=== PATIENT | female | born 1945 | race Two or more races ===

== ENCOUNTER 2016-08-19 11:16 | Emergency (ER) | payer OTHER, MEDICARE ==
[~2016-08-19] VITALS: Ht 157.5 cm; Wt 63.1 kg
[~2016-08-19 11:16] MED LIST: AMBIEN5 MG PO; ASPIRIN E.C.81 M1 PO; ASPIRIN81 M1 PO; ATROVENT H200 INHALA IH; Ambien PO; Atrovent HFA Inhaler IH; BENADRYL50 MG PO; Benadryl PO; CARDIZEM CD,CA120 MG PO; CARDIZEM60 MG PO; Claritin,Alavart PO; Dulcolax PO; LIPITOR10 MG PO; MOBIC7.5 MG PO; NEURONTIN400 M1 PO; Omega III EPA + DHA PO; Oyst-Cal D, Oscal W/ PO; PEPCID40 MG PO; PREMARIN0.625 MG PO; PREPARATION H60 GM PR; RESTASIS 01 DROP/0.4 BOTH EYES; RESTASIS1 EACH OP; SENOKOT S,PE1 TABLET PO; THERAGRAN1 TABLET PO; TYLENOL WITH C1 EACH PO; TYLENOL325 M1 PO; Tylenol Regular Stre PO; ULTRAM50 MG PO; ZOFRAN4 MG PO; Zocor PO
[2016-08-19 12:06] LABS: ADD MIUA? NO; BILIRUBIN NEGATIVE; BLOOD NEGATIVE; COLOR YELLOW ((YELLOW)); GLUCOSE (STRIP) NEGATIVE; KETONES NEGATIVE; LEUKOCYTES NEGATIVE; NITRITE NEGATIVE; PH, URINE 8.5 (5-8); PROTEIN (STRIP) NEGATIVE; SPECIFIC GRAVITY 1.006 (1.000-1.030); UCUL ADDED? NO; UROBILINOGEN 0.2 MG/DL (0.2-1.0)
[2016-08-19 12:16] LABS: HEMATOCRIT 37.5 % (36.0-46.0); MCH 27.2 PG (29.0-34.0); MCHC 33.6 G/DL (30.0-36.0); MEAN PLAT.VOLUME 9.9 uM^3 (9.5-12.4); PLATELET COUNT 307 K/uL (156-360); RBC DIS.WIDTH-SD 40.6 % (39-53); RED BLOOD COUNT 4.63 M/uL (3.80-5.20); WHITE BLOOD COUNT 6.6 K/uL (4.1-10.2)
[2016-08-19 12:22] LABS: PROTHROMBIN TIME 10.5 (9.2-11.2)
[2016-08-19 12:23] LABS: CHLORIDE 102 mEq/L (99-109); POTASSIUM 3.7 mEq/L (3.7-5.4); SODIUM 140 mEq/L (136-147)
[2016-08-19 12:25] LABS: GLUCOSE 107 mg/dL (70-99)
[2016-08-19 12:26] LABS: ANION GAP 15 MEQ/L (2-14)
[2016-08-19 12:29] LABS: GFR ESTIMATE (CALCULATED) > 59 mL/min/
[2016-08-19 12:30] LABS: UREA NITROGEN (BUN) 10 mg/dL (9-23)
[2016-08-19 12:35] LABS: TROP-I INTERPRETATION NEGATIVE; TROPONIN-I < 0.01 ng/mL (0.0-0.30)
[2016-08-19 18:24] VITALS: BP 160/74
== END 2016-08-19 18:26 | disposition home or self-care (01) ==
LOC: EME → EDBD 11:16 → EME 11:16
PROVIDERS: Emergency Medicine
DX: F41.9 Anxiety disorder, unspecified (principal); R07.9 Chest pain, unspecified; R41.82 Altered mental status, unspecified; J45.909 Unspecified asthma, uncomplicated; G89.29 Other chronic pain; M79.7 Fibromyalgia; E78.5 Hyperlipidemia, unspecified; I10 Essential (primary) hypertension; K21.9 Gastro-esophageal reflux disease without esophagitis; Z79.82 Long term (current) use of aspirin
CPT/HCPCS: 71010; 80048; 81003; 84484; 85027; 85610; 93005; 94640; 99281; 99285

== ENCOUNTER 2016-08-22 20:59 | Inpatient (IN) | payer OTHER, MEDICARE ==
[~2016-08-22] VITALS: Ht 157.5 cm; Wt 59.8 kg
[2016-08-22 22:09] LABS: EOSINOPHIL (%) 0.8 % (0-5); EOSINOPHIL COUNT 0.1 K/uL (0-0.3); HEMATOCRIT 40.5 % (36.0-46.0); IMMATURE GRANULOCYTE (%) 0.2 % (0.0-0.7); IMMATURE GRANULOCYTE COUNT 0.2 K/uL; LYMPHOCYTE COUNT 1.2 K/uL (1.0-2.8); MCH 27.6 PG (29.0-34.0); MCHC 34.1 G/DL (30.0-36.0); MEAN PLAT.VOLUME 9.9 uM^3 (9.5-12.4); MONOCYTE (%) 5.2 % (3-12); MONOCYTE COUNT 0.5 K/uL (0-0.8); NEUTROPHIL (%) 80.5 % (45-76); NEUTROPHIL COUNT 7.2 K/uL (1.8-6.4); PLATELET COUNT 331 K/uL (156-360); RBC DIS.WIDTH-SD 40.7 % (39-53)
[2016-08-22 22:19] LABS: CHLORIDE 101 mEq/L (99-109); POTASSIUM 3.8 mEq/L (3.7-5.4); SODIUM 136 mEq/L (136-147)
[2016-08-22 22:21] LABS: GLUCOSE 158 mg/dL (70-99)
[2016-08-22 22:22] LABS: ANION GAP 9 MEQ/L (2-14)
[2016-08-22 22:24] LABS: SERUM ETHYL ALCOHOL < 10 mg/dL
[2016-08-22 22:25] LABS: GFR ESTIMATE (CALCULATED) > 59 mL/min/
[2016-08-22 22:27] LABS: UREA NITROGEN (BUN) 9 mg/dL (9-23)
[2016-08-22 22:28] LABS: CREATINE KINASE 58 IU/L (1-294); SALICYLATE < 5.0 MG/DL (15-30); TROP-I INTERPRETATION NEGATIVE; TROPONIN-I < 0.01 ng/mL (0.0-0.30)
[2016-08-22 23:07] LABS: ADD MIUA? NO; BILIRUBIN NEGATIVE; BLOOD NEGATIVE; COLOR YELLOW ((YELLOW)); GLUCOSE (STRIP) NEGATIVE; KETONES NEGATIVE; LEUKOCYTES NEGATIVE; NITRITE NEGATIVE; PROTEIN (STRIP) NEGATIVE; SPECIFIC GRAVITY 1.007 (1.000-1.030); UCUL ADDED? NO; UROBILINOGEN 0.2 MG/DL (0.2-1.0)
[2016-08-23 00:25] LABS: AMPHETAMINE NEGATIVE (500 ng/mL); BARBITURATES NEGATIVE (200 ng/mL); BENZODIAZEPINES NEGATIVE (150 ng/mL); COCAINE NEGATIVE (150 ng/mL); INTERNAL CONTROLS VALID? YES; METHADONE NEGATIVE (200 ng/mL); METHAMPHETAMINE NEGATIVE (500 ng/mL); OPIATES (MORPHINE) NEGATIVE (100 ng/mL); OXYCODONE NEGATIVE (100 ng/mL); PHENCYCLIDINE NEGATIVE (25 ng/mL); PROPOXYPHENE NEGATIVE (300 ng/mL); THC CANNABINOIDS NEGATIVE (50 ng/mL); TRICYCLIC ANTIDEPRESSANTS NEGATIVE (300 ng/mL)
[2016-08-23 15:33] VITALS: BP 145/62
[2016-08-23] MEDS ORDERED: GABAPENTIN100 MG PO (17:01)
[2016-08-23] MEDS ORDERED: PANTOPRAZOLE SO40 MG PO ×2 (17:02→17:52)
[2016-08-23] MEDS ORDERED: PROAIR RESPICL90 MCG IH (17:03)
[2016-08-23] MEDS ORDERED: TRAMADOL HCL50 MG PO (17:39)
[2016-08-23] MEDS ORDERED: CARDIZEM120 MG PO (17:40)
[2016-08-23] MEDS ORDERED: CITALOPRAM HBR20 MG PO (17:41)
[2016-08-23] MEDS ORDERED: GABAPENTIN600 MG PO (17:41)
[2016-08-23] MEDS ORDERED: MELOXICAM7.5 MG PO (17:43)
[2016-08-23] MEDS ORDERED: ESTROPIPATE3 MG PO (17:43)
[2016-08-23] MEDS ORDERED: ZOLPIDEM TARTRAT5 MG PO (17:52)
[2016-08-23] MEDS ORDERED: ASPIR-LOW81 MG PO (17:53)
[2016-08-24 07:29] VITALS: BP 131/59
[2016-08-24 08:18] LABS: HEMATOCRIT 37.7 % (36.0-46.0); MCH 27.8 PG (29.0-34.0); MCHC 33.4 G/DL (30.0-36.0); MCV 83.2 FL (83-99); MEAN PLAT.VOLUME 10.3 uM^3 (9.5-12.4); PLATELET COUNT 286 K/uL (156-360); RBC DIS.WIDTH-CV 14.2 % (11.8-14.6); RBC DIS.WIDTH-SD 42.9 % (39-53); RED BLOOD COUNT 4.53 M/uL (3.80-5.20); WHITE BLOOD COUNT 7.3 K/uL (4.1-10.2)
[2016-08-24 08:40] LABS: ALKALINE PHOSPHATASE 68 IU/L (3-129); ANION GAP 7 MEQ/L (2-14); CHLORIDE 99 MEQ/L (99-109); GFR ESTIMATE (CALCULATED) > 59 mL/min/; POTASSIUM 4.2 MEQ/L (3.7-5.4); SAMPLE HEMOLYSIS CHECK 0; SAMPLE ICTERIC CHECK 0; SAMPLE LIPEMIA CHECK 0; SODIUM 135 MEQ/L (136-147); TOTAL BILIRUBIN 0.7 MG/DL (0.0-1.0); UREA NITROGEN (BUN) 10 mg/dL (9-23)
[2016-08-24 08:42] LABS: GLUCOSE 98 mg/dL (70-99)
[2016-08-24 15:53] VITALS: BP 152/80
[2016-08-25 07:37] VITALS: BP 148/65
[2016-08-25 16:01] VITALS: BP 150/82
[2016-08-26 07:48] VITALS: BP 179/79
[2016-08-26 10:56] VITALS: BP 153/66
[2016-08-26 15:34] VITALS: BP 188/75
[2016-08-27 03:37] VITALS: BP 187/78
[2016-08-27 07:59] VITALS: BP 149/73
[2016-08-27 12:03] VITALS: BP 154/74
[2016-08-27 15:52] VITALS: BP 177/75
[2016-08-28 07:43] VITALS: BP 150/62
== END 2016-08-28 14:15 | disposition home or self-care (01) | DRG 880 ==
LOC: EME 20:59 → EDOF 08-23 04:48 → 1WEST 08-23 13:30
PROVIDERS: Emergency Medicine; Internal Medicine
DX: F41.9 Anxiety disorder, unspecified (principal); R41.82 Altered mental status, unspecified; R51 Headache; R07.9 Chest pain, unspecified; I10 Essential (primary) hypertension; E78.00 Pure hypercholesterolemia, unspecified; F32.9 Major depressive disorder, single episode, unspecified; J45.909 Unspecified asthma, uncomplicated; M79.7 Fibromyalgia; K21.9 Gastro-esophageal reflux disease without esophagitis; I73.00 Raynaud's syndrome without gangrene; Z79.82 Long term (current) use of aspirin; Z91.19 Patient's noncompliance with other medical treatment and regimen
CPT/HCPCS: 70450; 71010; 80048; 80053; 81003; 82550; 82945; 84157; 84484; 85025; 85027; 87205; 89051; 90837; 93005; 94640; 94640 76; 94760; 97150 GO; 97165 GO; 99202; 99281; 99285; G0480; J1630; J1644; J2060

== ENCOUNTER → 2018-02-24 | Outpatient (CLI) | payer OTHER, MEDICARE ==
[~2018-02-24] MED LIST changes: +ASPIR-LOW81 MG PO; +CARDIZEM120 MG PO; +CITALOPRAM HBR20 MG PO; +ESTROPIPATE3 MG PO; +GABAPENTIN100 MG PO; +GABAPENTIN600 MG PO; +MELOXICAM7.5 MG PO; +PANTOPRAZOLE SO40 MG PO; +PROAIR RESPICL90 MCG IH; +TRAMADOL HCL50 MG PO; +ZOLPIDEM TARTRAT5 MG PO
== END | disposition home or self-care (01) ==
DX: Z01.818 Encounter for other preprocedural examination (principal); R26.2 Difficulty in walking, not elsewhere classified; M25.561 Pain in right knee; M25.661 Stiffness of right knee, not elsewhere classified; M25.461 Effusion, right knee; Z74.1 Need for assistance with personal care; M62.81 Muscle weakness (generalized); M17.11 Unilateral primary osteoarthritis, right knee
CPT/HCPCS: 97161 GP; 97165 GO; 97530 GP; 97535 GO; G8978 GP; G8979 GP; G8980 GP; G8987 GO; G8988 GO; G8989 GO

== ENCOUNTER 2018-03-08 21:52 | Inpatient (IN) | payer OTHER, MEDICARE ==
[~2018-03-08] VITALS: Ht 157.5 cm; Wt 61.0 kg
[~2018-03-08 21:52] MED LIST changes: +B-COMPLEX-VITA1 EACH PO; +CALCIUM 600 MG1 EACH PO; +ESTRACE0.5 MG PO; +NEURONTIN100 MG PO; +PULMICORT FLE180 MCG IH; +RESTASIS MULTI5.5 ML BOTH EYES; +VITAMIN D31000 UNIT PO
[2018-03-09 09:19] VITALS: BP 162/71
[2018-03-09 13:58] LABS: HEMATOCRIT 35.5 % (36.0-46.0); HEMOGLOBIN 11.9 G/DL (11.9-15.5); MCHC 33.5 G/DL (30.0-36.0); MCV 83.5 FL (83-99); PLATELET COUNT 269 K/uL (156-360); RBC DIS.WIDTH-CV 13.2 % (11.8-14.6); RBC DIS.WIDTH-SD 40.5 % (39-53); RED BLOOD COUNT 4.25 M/uL (3.80-5.20); WHITE BLOOD COUNT 10.9 K/uL (4.1-10.2)
[2018-03-09 20:51] VITALS: BP 183/74
[2018-03-09 23:36] VITALS: BP 187/78
[2018-03-10] VITALS (7 sets, daily range): BP systolic 105–194; BP diastolic 59–79
[2018-03-10 00:55] LABS: TROP-I INTERPRETATION NEGATIVE; TROPONIN-I < 0.01 ng/mL (0.0-0.30)
[2018-03-10 06:16] LABS: HEMOGLOBIN 11.4 G/DL (11.9-15.5); MCV 82.3 FL (83-99)
[2018-03-10 06:32] LABS: TROP-I INTERPRETATION NEGATIVE; TROPONIN-I 0.01 ng/mL (0.0-0.30)
[2018-03-10 06:37] LABS: CHLORIDE 97 MEQ/L (99-109); CREATININE 0.6 MG/DL (0.6-1.3); GFR ESTIMATE (CALCULATED) > 59 mL/min/; GLUCOSE 142 mg/dL (70-99); SODIUM 131 MEQ/L (136-147); UREA NITROGEN (BUN) 10 mg/dL (9-23)
[2018-03-10 13:01] LABS: TROP-I INTERPRETATION NEGATIVE; TROPONIN-I < 0.01 ng/mL (0.0-0.30)
[2018-03-11] VITALS (7 sets, daily range): BP systolic 131–181; BP diastolic 60–78
[2018-03-11 07:32] LABS: BASOPHIL (%) 0.1 % (0-1); EOSINOPHIL (%) 0 % (0-5); HEMATOCRIT 31.9 % (36.0-46.0); HEMOGLOBIN 10.7 G/DL (11.9-15.5); IMMATURE GRANULOCYTE (%) 0.2 % (0.0-0.7); LYMPHOCYTE (%) 8.3 % (15-42); MCHC 33.5 G/DL (30.0-36.0); MCV 83.5 FL (83-99); MONOCYTE (%) 8.6 % (3-12); MONOCYTE COUNT 1.1 K/uL (0-0.8); NEUTROPHIL (%) 82.8 % (45-76); NEUTROPHIL COUNT 10.1 K/uL (1.8-6.4); PLATELET COUNT 270 K/uL (156-360); RBC DIS.WIDTH-CV 13.5 % (11.8-14.6); RED BLOOD COUNT 3.82 M/uL (3.80-5.20); WHITE BLOOD COUNT 12.1 K/uL (4.1-10.2)
[2018-03-11 07:52] LABS: CHLORIDE 93 MEQ/L (99-109); CREATININE 0.6 MG/DL (0.6-1.3); GFR ESTIMATE (CALCULATED) > 59 mL/min/; GLUCOSE 121 mg/dL (70-99); POTASSIUM 4.2 MEQ/L (3.7-5.4); SODIUM 131 MEQ/L (136-147); UREA NITROGEN (BUN) 8 mg/dL (9-23)
[2018-03-12 00:48] VITALS: BP 159/71
[2018-03-12 03:26] VITALS: BP 160/78
[2018-03-12 07:24] VITALS: BP 169/72
[2018-03-12 08:34] LABS: HEMATOCRIT 30.7 % (36.0-46.0); HEMOGLOBIN 10.2 G/DL (11.9-15.5); MCH 27.7 PG (29.0-34.0); MCHC 33.2 G/DL (30.0-36.0); MCV 83.4 FL (83-99); PLATELET COUNT 264 K/uL (156-360); RBC DIS.WIDTH-CV 13.2 % (11.8-14.6); RBC DIS.WIDTH-SD 40.6 % (39-53); RED BLOOD COUNT 3.68 M/uL (3.80-5.20)
[2018-03-12 08:55] LABS: CHLORIDE 97 MEQ/L (99-109); CREATININE 0.7 MG/DL (0.6-1.3); GFR ESTIMATE (CALCULATED) > 59 mL/min/; GLUCOSE 124 mg/dL (70-99); SODIUM 137 MEQ/L (136-147); UREA NITROGEN (BUN) 11 mg/dL (9-23)
[2018-03-12] MEDS ORDERED: OXYCODONE HCL5 MG PO (09:12)
[2018-03-12] MEDS ORDERED: LOVENOX40 MG/0.4 SC (09:12)
[2018-03-12] MEDS ORDERED: SENNA PLUS TAB1 EACH PO (09:12)
== END 2018-03-12 15:05 | DRG 470 ==
LOC: ENRESERV 21:52 → CANRESERV 21:52 → ENRESERV 22:27 → 2SOUTH 03-09 08:40 → 3EAST 03-09 08:40 → 2SOUTH 03-09 11:54 → ENRESERV 03-09 13:44 → 2SOUTH 03-09 14:23 → 3EAST 03-09 16:22 → ENRESERV 03-09 16:22 → 2SOUTH 03-09 17:18 → 3EAST 03-12 15:05
PROVIDERS: Hospitalist; Internal Medicine; Nurse Practitioner Family; Orthopaedic Surgery
PROC: 0SRC0J9 Replacement of Right Knee Joint with Synthetic Substitute, Cemented, Open Approach (ICD-10-PCS; principal; 2018-03-09)
PROC: 3E0T3BZ Introduction of Anesthetic Agent into Peripheral Nerves and Plexi, Percutaneous Approach (ICD-10-PCS; 2018-03-09)
DX: M17.11 Unilateral primary osteoarthritis, right knee (principal); M21.161 Varus deformity, not elsewhere classified, right knee; R07.89 Other chest pain; J44.9 Chronic obstructive pulmonary disease, unspecified; G47.30 Sleep apnea, unspecified; I10 Essential (primary) hypertension; G43.909 Migraine, unspecified, not intractable, without status migrainosus; M79.7 Fibromyalgia; K21.9 Gastro-esophageal reflux disease without esophagitis; G89.29 Other chronic pain; E78.5 Hyperlipidemia, unspecified; F32.9 Major depressive disorder, single episode, unspecified; F41.9 Anxiety disorder, unspecified; G62.9 Polyneuropathy, unspecified; Z99.81 Dependence on supplemental oxygen; Z79.82 Long term (current) use of aspirin; Z91.040 Latex allergy status
CPT/HCPCS: 71275; 73560; 80048; 84484; 85014; 85018; 85025; 85027; 85379; 93005; 93970; 94640; 94799; 97530 GO; C1713; J0131; J0330; J0690; J1100; J1170; J1650; J2250; J2405; J2795; J3010; J7050